=== PATIENT | male | born 1935 | race Caucasian/White ===

== ENCOUNTER 2022-03-11 21:33 | Emergency (ER) | payer MEDICARE ==
[~2022-03-11] VITALS: Ht 180.3 cm; Wt 61.7 kg
[2022-03-11 21:50] VITALS: BP 112/73
--- NOTE | 2022-03-11 21:53 | NUR ---
TO LOBBY A/W BED AMBULATORY
--- NOTE | 2022-03-11 23:00 | NUR ---
ASSUME CARE OF PT BY MATTHEW LOUIS AT THIS TIME, PT C/O LEFT FLANK PAIN WITH BLOOD IN URINE, PT HAS A SUPRAPUBIC CATHETER, PT STATES CATHETER HAS NOT BEEN CHANGED SINCE JANUARY. PT SAYS HE HAS A WEAK BLADDER THATS WHY HE HAS THE CATHETER. WAITING FOR MD EVALUATION.
[2022-03-12] MEDS ORDERED: KETOROLAC 60 MG/2 ML VIAL IM ONE (00:30)
--- NOTE | 2022-03-12 00:50 | NUR ---
MEDICATIONS GIVEN FOR LEFT FLANK PAIN.
[2022-03-12] MEDS ORDERED: IBUP-2213 PO (01:11)
[2022-03-12] MEDS ORDERED: CIPR500T4 PO (01:11)
[2022-03-12 01:32] VITALS: BP 142/70
--- NOTE | 2022-03-12 01:33 | NUR ---
Patient discharged with v/s stable. Written and verbal after care instructions given and explained. Patient verbalized understanding. Wheel Chair Assisted with to car. All questions addressed prior to discharge. Advised to follow up with PMD.
== END 2022-03-12 01:33 | disposition home or self-care (01) ==
LOC: MED 21:33
DX: N39.0 Urinary tract infection, site not specified (principal); Z95.0 Presence of cardiac pacemaker
CPT/HCPCS: 81002; 87086; 96372; 99283; J1885

== ENCOUNTER 2022-05-16 13:20 | Emergency (ER) | payer MEDICARE ==
[~2022-05-16] VITALS: Ht 175.3 cm; Wt 59.0 kg
[~2022-05-16 13:20] MED LIST: CIPR500T4 PO; IBUP-2213 PO
[2022-05-16 13:28] VITALS: BP 117/64
--- NOTE | 2022-05-16 13:31 | NUR ---
PT ASSISTED TO WHEELCHAIR AND PLACED IN LOBBY.
--- NOTE | 2022-05-16 14:00 | NUR ---
86/M BIBA FROM HOME D/T HALLUCINATION WITNESSED BY BROTHER YESTERDAY. PT REPORTS VISUALIZING HIS , WHO , YESTERDAY AT HOME. DENIES ANY COMPLAINTS AT THIS TIME, PT GCS 15, DENIES SI, VERBALLY RESPONDS TO ALL QUESTIONS, DENIES ANY PAIN. AAO4. EMS DENIES FALL OR TRAUMA. PT CALM AND COOPERATIVE. PMH: PACEMAKER, HYPOTHYROIDISM, HTN, AFIB.
--- NOTE | 2022-05-16 17:31 | NUR ---
SPOKE WITH NATI, BROTHER, FOR PATIENT PICKUP. PER NATI, ON HIS WAY TO [employer] PT. PT IS AWARE.
[2022-05-16 17:33] VITALS: BP 125/66
--- NOTE | 2022-05-16 17:33 | NUR ---
Patient discharged with v/s stable. Written and verbal after care instructions given and explained. Patient verbalized understanding. Ambulatory with steady gait. All questions addressed prior to discharge. Advised to follow up with PMD.
== END 2022-05-16 17:33 | disposition home or self-care (01) ==
LOC: MED 13:20
DX: R44.1 Visual hallucinations (principal); Z63.4 Disappearance and death of family member; Z79.899 Other long term (current) drug therapy; Z95.0 Presence of cardiac pacemaker
CPT/HCPCS: 99283